=== PATIENT | female | born 1990 | race Caucasian/White ===

== ENCOUNTER → 2016-06-09 | Outpatient (CLI) | payer BC ==
[2016-06-09 16:05] LABS: CH 30.3; CHCM 35.5; HCT 35.1 % (34.0-46.0); HDW 3.06; HGB 12.3 gm/dL (11.4-16.0); MCH 30.2 pg (25.0-35.0); MCHC 35.2 g/dL (31.0-37.0); MCV 85.8 fL (80.0-100.0); RBC 4.09 m/uL (3.80-5.40); RDW 12.8 % (11.5-15.5); WBC 6.9 k/uL (3.8-10.6)
[2016-06-09 16:15] LABS: Glucose 86 mg/dL (74-99); Non-African American GFR(MDRD) >60 (>60 ml/min/1.73 sqM)
--- NOTE | 2016-06-09 16:25 | US ---
EXAMINATION TYPE: US OB <= 14 wk fetus DATE OF EXAM: 06/09/2016 3:50 PM COMPARISON: NONE CLINICAL HISTORY: 26-year-old female [id number] Confirm Dates. EXAM PERFORMED: Transabdominal (TA) scanning. FINDINGS: EXAM MEASUREMENTS: GESTATIONAL AGE / DATING Physician Established: (9 weeks/1 days) EDC: 01/11/2017 Dates by LMP: (9 weeks/1 days) EDC: 01/11/2017 Dates by First Scan: no previous scan Dates by Current Scan for: (8 weeks/4 days +/- 5 days) EDC: MATERNAL ANATOMY Uterus: 15.0 x 6.5 x 5.5cm, retroverted Right Ovary: 3.0 x 1.7 x 2.8cm Left Ovary: 2.4 x 1.5 x 2.5cm Post CDS / Adnexa: wnl Presence of free fluid: none seen GESTATION / SURVEY CRL: 1.9cm (8 weeks/4 days) MSD: wnl Yolk Sac (normal less than 6mm): 3.1 mm Heart Rate: 168 bpm Rhythm: Normal IUP: single viable IUP IMPRESSION: 1. Single live intrauterine with estimated gestational age of 9 weeks 1 day by LMP. Current ultrasound biometry is concordant (8 weeks 4 days). 2. Retroverted uterus. 3. Complete survey recommended at 18-20 weeks.
[2016-06-09 16:45] LABS: Hepatitis B Surface Ag Index 0.08
[2016-06-10 08:08] LABS: HIV-1/HIV-2 Ab Screen NONREAC (NON REAC)
== END | disposition home or self-care (01) ==
LOC: RADUSWWP 15:33
PROVIDERS: ATTEND Obstetrics & Gynecology
DX: O34.531 Maternal care for retroversion of gravid uterus, first trimester (principal); Z34.81 Encounter for supervision of other normal pregnancy, first trimester; Z3A.09 9 weeks gestation of pregnancy
CPT/HCPCS: 36415; 76801; 82565; 82947; 85027; 86762; 86780; 86850; 86900; 86901; 87340; 87389

== ENCOUNTER → 2016-10-14 | Outpatient (CLI) | payer BC ==
[2016-10-14 11:05] LABS: CH 31.2; CHCM 35.8; HCT 34.1 % (34.0-46.0); HDW 3.22; HGB 12.4 gm/dL (11.4-16.0); MCH 31.9 pg (25.0-35.0); MCHC 36.3 g/dL (31.0-37.0); Mean Platelet Volume 7.7; RBC 3.88 m/uL (3.80-5.40); RDW 14.4 % (11.5-15.5); WBC 11.9 k/uL (3.8-10.6)
== END | disposition home or self-care (01) ==
LOC: LABWHC1 09:45
PROVIDERS: ATTEND Obstetrics & Gynecology
DX: Z34.82 Encounter for supervision of other normal pregnancy, second trimester (principal); Z3A.00 Weeks of gestation of pregnancy not specified
CPT/HCPCS: 36415; 82950; 85027

== ENCOUNTER → 2016-10-19 | Outpatient (CLI) | payer BC ==
[2016-10-19 12:48] LABS: Glucose 3 Hour, Gest 90 mg/dL
== END | disposition home or self-care (01) ==
LOC: LABWHC1 08:38
PROVIDERS: ATTEND Obstetrics & Gynecology
DX: O24.419 Gestational diabetes mellitus in pregnancy, unspecified control (principal); Z3A.00 Weeks of gestation of pregnancy not specified
CPT/HCPCS: 36415; 82951; 82952

== ENCOUNTER → 2018-01-31 | Outpatient (CLI) | payer BC ==
--- NOTE | 2018-01-31 11:31 | US ---
EXAMINATION TYPE: US abdomen complete DATE OF EXAM: 01/31/2018 COMPARISON: NONE CLINICAL HISTORY: Abdominal pain R10.9. Right side tenderness. Patient is 14 weeks EXAM MEASUREMENTS: Liver Length: 15.2 cm Gallbladder Wall: 0.2 cm CBD: 0.4 cm Spleen: 11.5 cm Right Kidney: 11.0 x 4.8 x 5.8 cm Left Kidney: 12.0 x 5.7 x 5.6 cm Pancreas: Tail obscured by overlying bowel gas, visualized portions wnl Liver: wnl Gallbladder: wnl Evidence for sonographic Cummings's sign: No CBD: wnl Spleen: wnl Right Kidney: No hydronephrosis or masses seen Left Kidney: No hydronephrosis or masses seen Upper IVC: wnl Abd Aorta: wnl The liver is homogenous. The intrahepatic portion of the IVC and proximal abdominal aorta are within normal limits. There is no evidence of cholelithiasis. Common bile duct is unremarkable. The visu alized portions of the pancreas are homogenous. The spleen is unremarkable. Kidneys are symmetric a nd free of hydronephrosis. No renal lesions are seen. IMPRESSION: No hydronephrosis or nephrolithiasis. No sonographic evidence of acute cholecystitis or c holelithiasis. Unremarkable abdominal ultrasound.
== END | disposition home or self-care (01) ==
LOC: RADUSWWP 10:03
PROVIDERS: ATTEND Internal Medicine
DX: R10.9 Unspecified abdominal pain (principal)
CPT/HCPCS: 76700

== ENCOUNTER → 2018-05-02 | Outpatient (CLI) | payer BC, OTHER ==
[2018-05-02 11:58] LABS: HCT 35.9 % (34.0-46.0); MCHC 33.4 g/dL (31.0-37.0); MCV 89.8 fL (80.0-100.0); Mean Platelet Volume 6.6; Platelet Count 216 k/uL (150-450); RBC 3.99 m/uL (3.80-5.40); RDW 13.4 % (11.5-15.5)
== END | disposition home or self-care (01) ==
LOC: LABWHC1 09:48
PROVIDERS: ATTEND Obstetrics & Gynecology
DX: Z34.82 Encounter for supervision of other normal pregnancy, second trimester (principal)
CPT/HCPCS: 36415; 82950; 85027

== ENCOUNTER 2018-07-19 12:24 | Inpatient (IN) | payer BC ==
[2018-07-19] MEDS ORDERED: OXYTOCIN 10 UNIT/ML 1 ML VIAL IM PRN (12:43)
[2018-07-19] MEDS ORDERED: METHYLERGONOVINE 0.2 MG/ML 1 ML AMP IM PRN (12:43)
[2018-07-19] MEDS ORDERED: LIDOCAINE 0.5% (PF) 5 MG/ML (50 ML SDV) SQ PRN (12:43)
[2018-07-19] MEDS ORDERED: CARBOPROST TROMETHAMINE 250 MCG/ML 1 ML AMP IM PRN (12:43)
[2018-07-19] MEDS ORDERED: TERBUTALINE 1 MG/ML VIAL SQ PRN (12:43)
[2018-07-19] MEDS ORDERED: OXYTOCIN 30 UNITS/500 ML NS 30 UNIT in SALINE 1 500ML.BAG IV SCH (12:45)
[2018-07-19] MEDS: LACTATED RINGERS 1,000 ML IV SCH ×2 (13:00→13:45)
[2018-07-19 13:08] LABS: Basophils # (A) 0.1 k/uL (0-0.2); Basophils % (A) 0 %; Eosinophils # (A) 0.1 k/uL (0-0.7); Eosinophils % (A) 1 %; HCT 37.7 % (34.0-46.0); HGB 12.7 gm/dL (11.4-16.0); Lymphocytes # (A) 1.4 k/uL (1.0-4.8); Lymphocytes % (A) 11 %; MCH 28.8 pg (25.0-35.0); MCHC 33.6 g/dL (31.0-37.0); MCV 85.9 fL (80.0-100.0); Mean Platelet Volume 9.7; Monocytes # (A) 0.5 k/uL (0-1.0); Monocytes % (A) 4 %; Neutrophils # (A) 10.7 k/uL (1.3-7.7); Neutrophils % (A) 83 %; Platelet Count 205 k/uL (150-450); Poikilocytosis Slight; RBC 4.39 m/uL (3.80-5.40); RDW 14.5 % (11.5-15.5); WBC 12.8 k/uL (3.8-10.6)
[2018-07-19] MEDS ORDERED: fentaNYL (PF) 50 MCG/ML 5 ML AMP ONE (13:11)
[2018-07-19] MEDS ORDERED: SODIUM CHLORIDE 0.9% 100 ML BAG ONE (13:11)
[2018-07-19] MEDS ORDERED: ROPIVACAINE 5MG/ML 20ML VIAL ONE (13:11)
[2018-07-19 13:41] VITALS: BMI 24.4
[2018-07-19] MEDS ORDERED: SIMETHICONE 80 MG CHEWABLE PO PRN (14:49)
[2018-07-19] MEDS ORDERED: ZOLPIDEM 5 MG TAB PO PRN (14:49)
[2018-07-19] MEDS ORDERED: diphenhydrAMINE 50 MG CAP PO PRN (14:49)
[2018-07-19] MEDS ORDERED: HYDROCORTISONE 2.5% RECTAL CREAM 30 GM TUBE RECTAL PRN (14:49)
[2018-07-19] MEDS ORDERED: BENZOCAINE/MENTHOL SPRAY 1 GM/SPRAY AEROSOL TOPICAL PRN (14:49)
[2018-07-19] MEDS ORDERED: LANOLIN CREAM 5 GM TUBE TOPICAL PRN (14:49)
[2018-07-19] MEDS ORDERED: WITCH HAZEL 1 EACH MED..PAD TOPICAL PRN (14:49)
[2018-07-19] MEDS ORDERED: diphenhydrAMINE 25 MG CAP PO PRN (14:49)
[2018-07-19] MEDS ORDERED: OXYTOCIN 20 UNITS/1000 ML NS 1,000 ML IV SCH (15:00)
--- NOTE | 2018-07-19 16:57 | P.HPOB ---
History of Present Illness H&P Date: 07/19/18 Chief Complaint: Intrauterine at term: Active labor Carlie is a 28-year-old female at 38 weeks gestation who arrives in active labor dilated to 6 cm epidural was placed for analgesia. She denies any problems or issues with this and she has a category 1 tracing noted at this time. Past Medical History Past Medical History: No Reported History History of Any Multi-Drug Resistant Organisms: None Reported Additional Past Surgical History / Comment(s): Leep, [place] Tooth Extraction Past Anesthesia/Blood Transfusion Reactions: No Reported Reaction Past Psychological History: No Psychological Hx Reported Smoking Status: Never smoker Past Alcohol Use History: None Reported Past Drug Use History: None Reported - Past Family History Mother Family Medical History: No Reported History Medications and Allergies Home Medications Medication Instructions Recorded Confirmed Type No Known Home Medications 07/19/18 07/19/18 History Allergies Allergy/AdvReac Type Severity Reaction Status Date / Time No Known Allergies Allergy Verified 01/11/17 04:12 Exam Osteopathic Statement: *. No significant issues noted on an osteopathic structural exam other than those noted in the History and Physical/Consult. Vital Signs Temp Pulse Resp BP Pulse Ox 07/19/18 15:50 97.1 F L 98 18 109/57 07/19/18 15:20 97.3 F L 87 16 112/63 07/19/18 15:05 96.9 F L 93 16 121/70 07/19/18 14:50 97.4 F L 88 18 127/60 07/19/18 14:35 97.5 F L 90 18 126/55 07/19/18 12:58 97.7 F 96 18 128/75 98 07/19/18 12:33 97.7 F 93 18 128/75 98 Intake and Output 07/19/18 07/19/18 07/19/18 06:59 14:59 22:59 Output Total 75 Balance -75 Output: Urine 75 Other: # Voids 0 Weight 66.587 kg - OBG Physical Exam Breast: both: normal (no masses) Abdomen: bowel sounds normal, no diffuse tenderness, no bruit present, no guarding noted, no hepatomegaly, no splenomegaly, no mass Vulva: both: normal Vagina: normal moisture, no discharge Cervix: no lesion, no discharge Uterus: normal size, normal contour Adnexa: both: normal Anus/Rectum: normal perianal skin, no rectal mass, no hemorrhoids, heme negative Results Result Diagrams: 07/19/18 12:55 Abnormal Lab Results - Last 24 Hours (Table) 07/19/18 Range/Units 12:55 WBC 12.8 H (3.8-10.6) k/uL Neutrophils # 10.7 H (1.3-7.7) k/uL
--- NOTE | 2018-07-19 16:58 | P.PROBDLV ---
Vaginal Delivery Note - . Vaginal Delivery Note: Patient progressed complete and pushing with spontaneous vaginal delivery of a viable female over an intact perineum. Following delivery of the head anterior posterior shoulders were easily delivered with gentle downward upper traction followed by the remainder the baby. Mouth nares were then bulb suctioned and baby was placed mother's abdomen where the umbilical cord was allowed to pulsate for 30 seconds prior to clamping and cutting. Once this was accomplished nursery personnel was present and assumed care. True knot was noted in the cord during delivery of the placenta, however placenta delivered without difficulty and was sent to pathology due to true knot. scores 9 and 9 at one and 5 minutes respectively and the weight was 7 lbs. 3 oz. Both mother and baby are stable following delivery.
[2018-07-19] MEDS: IBUPROFEN 600 MG TAB PO PRN (20:43)
[2018-07-19] MEDS: ACETAMINOPHEN TAB 325 MG TAB PO PRN (23:26)
[2018-07-19] MEDS: SENNOSIDES-DOCUSATE SODIUM 1 EACH TAB PO SCH (23:26)
[2018-07-20] MEDS: IBUPROFEN 600 MG TAB PO PRN ×2 (02:06→09:57)
[2018-07-20] MEDS: ACETAMINOPHEN TAB 325 MG TAB PO PRN ×2 (06:12→14:29)
--- NOTE | 2018-07-20 06:32 | P.PNOBGVD ---
Subjective - Subjective Patient reports: Reports appetite normal, Reports voiding normally, Reports pain well controlled, Reports ambulating normally : doing well Objective - Latest Vital Signs Latest vital signs: Vital Signs Temp Pulse Resp BP Pulse Ox 07/19/18 23:13 98.2 F 72 18 127/76 99 07/19/18 20:00 98.1 F 88 16 124/70 98 07/19/18 16:20 97.8 F 86 18 116/61 07/19/18 15:50 97.1 F L 98 18 109/57 07/19/18 15:20 97.3 F L 87 16 112/63 07/19/18 15:05 96.9 F L 93 16 121/70 07/19/18 14:50 97.4 F L 88 18 127/60 07/19/18 14:35 97.5 F L 90 18 126/55 07/19/18 12:58 97.7 F 96 18 128/75 98 07/19/18 12:33 97.7 F 93 18 128/75 98 Intake and Output 07/19/18 07/19/18 07/20/18 14:59 22:59 06:59 Intake Total 200 Output Total 75 Balance -75 200 Intake: Oral 200 Output: Urine 75 Other: # Voids 1 2 Weight 66.587 kg - Exam Lungs: bilateral: normal Chest: Normal S1, Normal S2 Extremities: Present: normal Abdomen: Present: normal appearance, soft Uterus: Present: normal, firm - Labs Labs: Abnormal Lab Results - Last 24 Hours (Table) 07/19/18 Range/Units 12:55 WBC 12.8 H (3.8-10.6) k/uL Neutrophils # 10.7 H (1.3-7.7) k/uL Assessment and Plan Assessment: day #1. Patient is resting without complaints wishes to go home. Vital signs are stable she's afebrile. Uterus is firm nontender and she is having normal lochia. My impression is this is a normal course. Plan is to continue routine care discharge home later today. (1) Normal labor and delivery Current Visit: No Status: Acute Code(s): O80 - ENCOUNTER FOR FULL-TERM UNCOMPLICATED DELIVERY SNOMED Code(s): 94777270
--- NOTE | 2018-07-20 06:36 | P.DS ---
Providers Date of admission: 07/19/18 12:43 Expected date of discharge: 07/20/18 Attending physician: Pratik Rose Primary care physician: Stated None - Discharge Diagnosis(es) (1) Normal labor and delivery Current Visit: No Status: Acute Hospital Course: Please see dictated H&P for intimate details of this patient's admission. Brief summary this is a pleasant 28-year-old 5 para 3 female 38-4/7 weeks gestation is admitted to labor and delivery in active labor. Patient quickly goes on have a vaginal delivery viable female infant. Please see dictated delivery note. day 1 patient wishes to go home was felt be stable for discharge home follow up with me in 6 weeks. Procedures: Normal spontaneous vaginal delivery Patient Condition at Discharge: Good Plan - Discharge Summary New Discharge Prescriptions: New Ibuprofen [Motrin] 600 mg PO Q6HR PRN #40 tab PRN Reason: Mild Pain Or Fever >= 100.5 Discharge Medication List Ibuprofen [Motrin] 600 mg PO Q6HR PRN #40 tab 07/20/18 [Rx] Follow up Appointment(s)/Referral(s): Pratik Rose MD [STAFF PHYSICIAN] - 6 Weeks Patient Instructions/Handouts: Vaginal Delivery (DC) Activity/Diet/Wound Care/Special Instructions: No intercourse or anything per vagina for 6 weeks. Please call if any fever, chills, excessive vaginal bleeding, and/or abdominal pain. Discharge Disposition: HOME SELF-CARE
[2018-07-20] MEDS: SENNOSIDES-DOCUSATE SODIUM 1 EACH TAB PO SCH (08:02)
[2018-07-20 08:03] LABS: Basophils % (A) 0 %; Eosinophils # (A) 0.1 k/uL (0-0.7); Eosinophils % (A) 1 %; HCT 32.3 % (34.0-46.0); HGB 10.9 gm/dL (11.4-16.0); Hypochromasia Slight; Lymphocytes # (A) 1.6 k/uL (1.0-4.8); Lymphocytes % (A) 17 %; MCH 29.5 pg (25.0-35.0); MCHC 33.8 g/dL (31.0-37.0); MCV 87.3 fL (80.0-100.0); Mean Platelet Volume 9.8; Monocytes # (A) 0.4 k/uL (0-1.0); Monocytes % (A) 5 %; Neutrophils # (A) 7.1 k/uL (1.3-7.7); Neutrophils % (A) 75 %; Platelet Count 167 k/uL (150-450); Poikilocytosis Slight; RBC 3.69 m/uL (3.80-5.40); RDW 14.5 % (11.5-15.5); WBC 9.4 k/uL (3.8-10.6)
[2018-07-20 12:01] VITALS: BP 115/71; PULSE 74; RESP 15; TEMP 97.8
== END 2018-07-20 15:35 | disposition home or self-care (01) | DRG 807 ==
LOC: FBPOP 12:24 → 4FBP 12:43
PROVIDERS: ADMIT Obstetrics & Gynecology; ATTEND Obstetrics & Gynecology
PROC: 10E0XZZ Delivery of Products of Conception, External Approach (ICD-10-PCS; principal; 2018-07-19)
PROC: 00HU33Z Insertion of Infusion Device into Spinal Canal, Percutaneous Approach (ICD-10-PCS; 2018-07-19)
PROC: 3E0R3BZ Introduction of Anesthetic Agent into Spinal Canal, Percutaneous Approach (ICD-10-PCS; 2018-07-19)
DX: O69.2XX0 Labor and delivery complicated by other cord entanglement, with compression, not applicable or unspecified (principal); Z37.0 Single live birth; Z3A.38 38 weeks gestation of pregnancy
CPT/HCPCS: 59025; 85025; 86850; 86900; 86901; 88307; 99213

== ENCOUNTER 2020-11-09 10:51 | Emergency (ER) | payer BC ==
[2020-11-09 11:01] VITALS: TEMP 97.9
[2020-11-09] MEDS ORDERED: LORazepam 1 MG TAB PO STA (11:22)
--- NOTE | 2020-11-09 11:39 | XR ---
EXAMINATION TYPE: XR soft tissue neck DATE OF EXAM: 11/09/2020 COMPARISON: NONE HISTORY: Sore throat TECHNIQUE: 2 view submitted FINDINGS: Osseous structures intact. Prevertebral soft tissues within normal limits. Epiglottis withi n normal limits. The lung apices clear. Airway patent. IMPRESSION: No abnormality noted.
--- NOTE | 2020-11-09 12:09 | ED ---
Nausea/Vomiting/Diarrhea HPI - General Chief complaint: Nausea/Vomiting/Diarrhea Stated complaint: Difficulty Swallowing Time Seen by Provider: 11/09/20 10:53 Source: patient, EMS Mode of arrival: EMS Limitations: no limitations - History of Present Illness Initial comments: 30-year-old female presents emergency Department with the with a chief a little panic attack. Patient brought to the ED via EMS. On physical examination, patient is quite anxious and crying. Patient states she has been experiencing some changes in her voice. States that her voice has been feeling more hoarse than usual over the last several months. States she has been reading online and was concern for possible neoplastic disease of her throat. States she did not follow up with her primary care at all. States she began to drive to the hospital for an evaluation and suffered a panic attack. Patient reports this is a first panic attack so she contacted EMS. Patient reports she feels slightly better now but is still very anxious. she is not taking any medications for her anxiety. - Related Data Previous Rx's Medication Instructions Recorded LORazepam [Ativan] 1 mg PO HS 3 Days #3 tab 11/09/20 Allergies Allergy/AdvReac Type Severity Reaction Status Date / Time No Known Allergies Allergy Verified 11/09/20 11:18 Review of Systems ROS Statement: Those systems with pertinent positive or pertinent negative responses have been documented in the HPI. ROS Other: All systems not noted in ROS Statement are negative. Past Medical History Past Medical History: No Reported History History of Any Multi-Drug Resistant Organisms: None Reported Additional Past Surgical History / Comment(s): Leep, [place] Tooth Extraction Past Anesthesia/Blood Transfusion Reactions: No Reported Reaction Past Psychological History: No Psychological Hx Reported Smoking Status: Never smoker Past Alcohol Use History: Rare Past Drug Use History: None Reported - Past Family History Mother Family Medical History: No Reported History General Exam Limitations: no limitations General appearance: alert, in no apparent distress, anxious Head exam: Present: atraumatic, normocephalic, normal inspection Eye exam: Present: normal appearance, PERRL, EOMI Pupils: Present: normal accommodation ENT exam: Present: normal exam, normal oropharynx, mucous membranes moist Neck exam: Present: normal inspection, full ROM. Absent: tenderness, lymphadenopathy Respiratory exam: Present: normal lung sounds bilaterally. Absent: respiratory distress Cardiovascular Exam: Present: regular rate, normal rhythm, normal heart sounds. Absent: systolic murmur Extremities exam: Present: normal inspection, full ROM, normal capillary refill. Absent: tenderness Back exam: Present: normal inspection, full ROM. Absent: tenderness, CVA tenderness (R), CVA tenderness (L) Neurological exam: Present: alert, oriented X3, normal gait Psychiatric exam: Present: normal affect, anxious Skin exam: Present: warm, dry, intact, normal color Course Vital Signs 11/09/20 10:55 Temperature 97.9 F Pulse Rate 101 H Respiratory 22 Rate Blood Pressure 113/83 O2 Sat by Pulse 100 Oximetry Medical Decision Making - Medical Decision Making 30-year-old male presents to the emergency department with a chief complaint of a panic attack. Physical examination, patient is quite anxious. She was given 1 mg of Ativan. X-ray of the soft tissues of the neck is unremarkable. ENT examination was unremarkable. No palpable abnormalities of the thyroid. With 3 tablets of Ativan. I advise a follow-up with her primary care physician. Strict return parameters were thoroughly discussed patient is an attending ago. Case discussed physician. Disposition Clinical Impression: Panic attack Disposition: ADMITTED IP TO THIS [facility] Condition: Fair Instructions (If sedation given, give patient instructions): Panic Attack (ED), Anxiety (ED) Additional Instructions: Please return to the Emergency Department if symptoms worsen or any other concerns. Do not drive or operate heavy machinery when taking medication. Prescriptions: LORazepam [Ativan] 1 mg PO HS 3 Days #3 tab Is patient prescribed a controlled substance at d/c from ED?: Yes If prescribed controlled substance>3 days was MAPS reviewed?: Prescribed <3 Days Referrals: Allison Rossi MD [Primary Care Provider] - 1-2 days Time of Disposition: 12:09
[2020-11-09 12:39] VITALS: RESP 18
[2020-11-09 12:40] VITALS: BP 100/74; PULSE 85
== END 2020-11-09 12:29 | disposition other institution (70) ==
LOC: EC 10:51
DX: F41.0 Panic disorder [episodic paroxysmal anxiety] (principal)
CPT/HCPCS: 70360; 99285

== ENCOUNTER 2023-05-03 12:09 | Emergency (ER) | payer BC ==
--- NOTE | 2023-05-03 12:27 | ED ---
General Adult HPI - General Chief complaint: Abdominal Pain Stated complaint: abd pain Time Seen by Provider: 05/03/23 12:15 Source: patient, RN notes reviewed Mode of arrival: ambulatory Limitations: no limitations - History of Present Illness Initial comments: 33-year-old female presents to the emergency department for evaluation of epigastric abdominal pain x 10 hours. Patient reports that the pain is intermittent. She states that when it comes on it feels like a shooting, stabbing pain in her abdomen. She states that the pain was lasting for 20 to 30 minutes at a time but now is only lasting for around 10 minutes at a time. She denies any known triggers. She denies fever, chills, nausea, vomiting. She states that she had the urge to have a bowel movement this morning but was unable to. She denies any prior abdominal surgeries. Denies significant past medical history. She denies any other associated symptoms. - Related Data Previous Rx's Medication Instructions Recorded LORazepam [Ativan] 1 mg PO HS 3 Days #3 tab 11/09/20 Allergies Allergy/AdvReac Type Severity Reaction Status Date / Time No Known Allergies Allergy Verified 05/03/23 12:10 Review of Systems ROS Statement: Those systems with pertinent positive or pertinent negative responses have been documented in the HPI. ROS Other: All systems not noted in ROS Statement are negative. Past Medical History Past Medical History: No Reported History History of Any Multi-Drug Resistant Organisms: None Reported Additional Past Surgical History / Comment(s): Leep, Wilbur Tooth Extraction Past Anesthesia/Blood Transfusion Reactions: No Reported Reaction Past Psychological History: No Psychological Hx Reported Smoking Status: Never smoker Past Alcohol Use History: Rare Past Drug Use History: None Reported - Past Family History Mother Family Medical History: No Reported History General Exam Limitations: no limitations General appearance: alert, in no apparent distress Head exam: Present: atraumatic, normocephalic, normal inspection Eye exam: Present: normal appearance, PERRL, EOMI. Absent: scleral icterus, conjunctival injection, periorbital swelling ENT exam: Present: normal exam, mucous membranes moist Neck exam: Present: normal inspection. Absent: tenderness, meningismus, lymphadenopathy Respiratory exam: Present: normal lung sounds bilaterally. Absent: respiratory distress, wheezes, rales, rhonchi, stridor Cardiovascular Exam: Present: regular rate, normal rhythm, normal heart sounds. Absent: systolic murmur, diastolic murmur, rubs, gallop, clicks GI/Abdominal exam: Present: soft, tenderness, normal bowel sounds. Absent: distended, guarding, rebound, rigid Extremities exam: Present: normal inspection, full ROM, normal capillary refill. Absent: tenderness, pedal edema, joint swelling, calf tenderness Back exam: Present: normal inspection Neurological exam: Present: alert, oriented X3 Psychiatric exam: Present: normal affect, normal mood Skin exam: Present: warm, dry, intact, normal color. Absent: rash Course Vital Signs 05/03/23 05/03/23 12:10 14:24 Temperature 98.2 F Pulse Rate 113 H 94 Respiratory 18 18 Rate Blood Pressure 114/66 O2 Sat by Pulse 99 Oximetry Medical Decision Making - Medical Decision Making Was pt. sent in by a medical professional or institution (, PA, SHEET METAL LAYOUT WORKER, urgent care, hospital, or longterm...) When possible be specific @ -No Did you speak to anyone other than the patient for history (EMS, parent, family, police, friend...)? What history was obtained from this source @ -No Did you review nursing and triage notes (agree or disagree)? Why? @ -I reviewed and agree with nursing and triage notes Were old charts reviewed (outside hosp., previous admission, EMS record, old EKG, old radiological studies, urgent care reports/EKG's, longterm records)? Report findings @ -No old charts were reviewed Differential Diagnosis (chest pain, altered mental status, abdominal pain women, abdominal pain men, vaginal bleeding, weakness, fever, dyspnea, syncope, headache, dizziness, GI bleed, back pain, seizure, CVA, palpatations, mental health, musculoskeletal)? @ -Differential Abdominal Pain Women: Appendicitis, Cholecystitis, diverticulosis, ischemic bowel, pancreatitis, hepatitis, UTI, gastroenteritis, AAA, incarcerated hernia, bowel obstruction, constipation, inflammatory bowel, hepatitis, peptic ulcer disease, splenic infarction, perforated viscus, vulvitis, ovarian torsion, PID, kidney stone, placenta abruption, this is not meant to be an all-inclusive list EKG interpreted by me (3pts min.). @ -None X-rays interpreted by me (1pt min.). @ -None done CT interpreted by me (1pt min.). @ -CT abdomen pelvis shows Small bowel enteritis with multiple thickened small bowel loops leading into the pelvis, appendix not definitively visualized U/S interpreted by me (1pt. min.). @ -None done What testing was considered but not performed or refused? (CT, X-rays, U/S, labs)? Why? @ -None What meds were considered but not given or refused? Why? @ -Pain medication considered. Patient declined at this time. Did you discuss the management of the patient with other professionals (professionals i.e. , PA, SHEET METAL LAYOUT WORKER, lab, RT, psych nurse, transition social worker, cash applications coordinator, teacher, customer service security officer, watch case polisher)? Give summary @ -No Was smoking cessation discussed for >3mins.? @ -No Was critical care preformed (if so, how long)? @ -No Were there social determinants of health that impacted care today? How? (Homelessness, low income, unemployed, alcoholism, drug addiction, transport ation, low edu. Level, literacy, decrease access to med. care, nursing home, rehab)? @ -No Was there de-escalation of care discussed even if they declined (Discuss DNR or withdrawal of care, Hospice)? DNR status @ -No What co-morbidities impacted this encounter? (DM, HTN, Smoking, COPD, CAD, Cancer, CVA, ARF, Chemo, Hep., AIDS, mental health diagnosis, sleep apnea, morbid obesity)? @ -None Was patient admitted / discharged? Hospital course, mention meds given and route, prescriptions, significant lab abnormalities, going to OR and other pertinent info. @ -Discharge. Patient presented to the emergency department for evaluation of abdominal pain. Laboratory studies obtained.CBC shows WBC 12.1, hemoglobin 14.4, hematocrit 41.7; CMP essentially unremarkable; UA shows 1+ ketones, small blood, 1 RBC, 1 WBC; negative urine hCG; CT abdomen pelvis obtained shows small bowel enteritis with multiple thickened bowel loops leading in to the pelvis with a simple appearing free fluid, appendix not definitively visualized. Patient is not having any lower abdominal pain at this time. Discussed findings with patient and advised symptomatic treatment at this time. Patient understanding agreeable plan. Patient stable at time of discharge. Case discussed with Dr. Stephenson Undiagnosed new problem with uncertain prognosis? @ -No Drug Therapy requiring intensive monitoring for toxicity (Heparin, Nitro, Insulin, Cardizem)? @ -No Were any procedures done? @ -No Diagnosis/symptom? @ -Enteritis Acute, or Chronic, or Acute on Chronic? @ -Acute Uncomplicated (without systemic symptoms) or Complicated (systemic symptoms)? @ -Uncomplicated Side effects of treatment? @ -No Exacerbation, Progression, or Severe Exacerbation? @ -No Poses a threat to life or bodily function? How? (Chest pain, [place], [place], pneumonia, PE, COPD, DKA, ARF, appy, cholecystitis, CVA, Diverticulitis, Homicidal, Suicidal, threat to staff... and all critical care pts) @ -No - Lab Data Result diagrams: 05/03/23 12:37 05/03/23 12:37 Lab Results 05/03/23 05/03/23 05/03/23 Range/Units 12:37 12:37 12:37 WBC 12.1 H (3.8-10.6) k/uL RBC 4.78 (3.80-5.40) m/uL Hgb 14.4 (11.4-16.0) gm/dL Hct 41.7 (34.0-46.0) % MCV 87.2 (80.0-100.0) fL MCH 30.1 (25.0-35.0) pg MCHC 34.5 (31.0-37.0) g/dL RDW 12.3 (11.5-15.5) % Plt Count 248 (150-450) k/uL MPV 7.5 Neutrophils % 87 % Lymphocytes % 9 % Monocytes % 3 % Eosinophils % 0 % Basophils % 0 % Neutrophils # 10.5 H (1.3-7.7) k/uL Lymphocytes # 1.1 (1.0-4.8) k/uL Monocytes # 0.3 (0-1.0) k/uL Eosinophils # 0.0 (0-0.7) k/uL Basophils # 0.0 (0-0.2) k/uL Sodium (137-145) mmol/L Potassium (3.5-5.1) mmol/L Chloride (98-107) mmol/L Carbon Dioxide (22-30) mmol/L Anion Gap mmol/L BUN (7-17) mg/dL Creatinine (0.52-1.04) mg/dL Est GFR (CKD-EPI)AfAm (>60 ml/min/1.73 sqM) Est GFR (CKD-EPI)NonAf (>60 ml/min/1.73 sqM) Glucose (74-99) mg/dL Plasma Lactic Acid Isr[place] (0.7-2.0) mmol/L Calcium (8.4-10.2) mg/dL Total Bilirubin (0.2-1.3) mg/dL AST (14-36) U/L ALT (4-34) U/L Alkaline Phosphatase (38-126) U/L Total Protein (6.3-8.2) g/dL Albumin (3.5-5.0) g/dL Amylase (30-110) U/L Lipase (23-300) U/L Urine Color Yellow Urine Appearance Clear (Clear) Urine pH 5.0 (5.0-8.0) Ur Specific Boron 1.026 (1.001-1.035) Urine Protein Negative (Negative) Urine Glucose (UA) Negative (Negative) Urine Ketones 1+ H (Negative) Urine Blood Small H (Negative) Urine Nitrite Negative (Negative) Urine Bilirubin Negative (Negative) Urine Urobilinogen <2.0 (<2.0) mg/dL Ur Leukocyte Esterase Negative (Negative) Urine RBC 1 (0-5) /hpf Urine WBC 1 (0-5) /hpf Ur Squamous Epith Cells 5 H (0-4) /hpf Urine Mucus Many H (None) /hpf Urine HCG, Qual Not Detected (Not Detectd) 05/03/23 05/03/23 Range/Units 12:37 12:37 WBC (3.8-10.6) k/uL RBC (3.80-5.40) m/uL Hgb (11.4-16.0) gm/dL Hct (34.0-46.0) % MCV (80.0-100.0) fL MCH (25.0-35.0) pg MCHC (31.0-37.0) g/dL RDW (11.5-15.5) % Plt Count (150-450) k/uL MPV Neutrophils % % Lymphocytes % % Monocytes % % Eosinophils % % Basophils % % Neutrophils # (1.3-7.7) k/uL Lymphocytes # (1.0-4.8) k/uL Monocytes # (0-1.0) k/uL Eosinophils # (0-0.7) k/uL Basophils # (0-0.2) k/uL Sodium 139 (137-145) mmol/L Potassium 4.0 (3.5-5.1) mmol/L Chloride 105 (98-107) mmol/L Carbon Dioxide 26 (22-30) mmol/L Anion Gap 8 mmol/L BUN 16 (7-17) mg/dL Creatinine 0.47 L (0.52-1.04) mg/dL Est GFR (CKD-EPI)AfAm >90 (>60 ml/min/1.73 sqM) Est GFR (CKD-EPI)NonAf >90 (>60 ml/min/1.73 sqM) Glucose 98 (74-99) mg/dL Plasma Lactic Acid Isrrael 1.0 (0.7-2.0) mmol/L Calcium 9.8 (8.4-10.2) mg/dL Total Bilirubin 0.7 (0.2-1.3) mg/dL AST 26 (14-36) U/L ALT 30 (4-34) U/L Alkaline Phosphatase 82 (38-126) U/L Total Protein 8.1 (6.3-8.2) g/dL Albumin 4.7 (3.5-5.0) g/dL Amylase 50 (30-110) U/L Lipase 50 (23-300) U/L Urine Color Urine Appearance (Clear) Urine pH (5.0-8.0) Ur Specific Boron (1.001-1.035) Urine Protein (Negative) Urine Glucose (UA) (Negative) Urine Ketones (Negative) Urine Blood (Negative) Urine Nitrite (Negative) Urine Bilirubin (Negative) Urine Urobilinogen (<2.0) mg/dL Ur Leukocyte Esterase (Negative) Urine RBC (0-5) /hpf Urine WBC (0-5) /hpf Ur Squamous Epith Cells (0-4) /hpf Urine Mucus (None) /hpf Urine HCG, Qual (Not Detectd) Disposition Clinical Impression: Enteritis Disposition: HOME SELF-CARE Condition: Stable Instructions (If sedation given, give patient instructions): Abdominal Pain (ED) Additional Instructions: Alternate Tylenol and Motrin for discomfort. Please follow up with your primary care provider. Return to the emergency department for new or worsening symptoms. Is patient prescribed a controlled substance at d/c from ED?: No Referrals: Allison Rossi MD [Primary Care Provider] - 1-2 days
[2023-05-03 12:31] VITALS: BP 114/66; RESP 18; TEMP 98.2
[2023-05-03 12:57] LABS: Basophils % (A) 0 %; Eosinophils % (A) 0 %; HCT 41.7 % (34.0-46.0); HGB 14.4 gm/dL (11.4-16.0); Lymphocytes # (A) 1.1 k/uL (1.0-4.8); Lymphocytes % (A) 9 %; MCH 30.1 pg (25.0-35.0); MCHC 34.5 g/dL (31.0-37.0); MCV 87.2 fL (80.0-100.0); Mean Platelet Volume 7.5; Monocytes # (A) 0.3 k/uL (0-1.0); Monocytes % (A) 3 %; Neutrophils # (A) 10.5 k/uL (1.3-7.7); Neutrophils % (A) 87 %; Platelet Count 248 k/uL (150-450); RBC 4.78 m/uL (3.80-5.40); RDW 12.3 % (11.5-15.5); WBC 12.1 k/uL (3.8-10.6)
[2023-05-03 13:05] LABS: Appearance,Urine Clear (Clear); Bilirubin,Urine Negative (Negative); Blood,Urine Small (Negative); Color,Urine Yellow; Glucose,Urine (UA) Negative (Negative); Ketones,Urine 1+ (Negative); Leukocyte Esterase,Urine Negative (Negative); Mucus,Urine Many /hpf; Nitrite,Urine Negative (Negative); Protein,Urine Negative (Negative); RBC,Urine 1 /hpf (0-5); Specific Gravity,Urine 1.026 (1.001-1.035); Squamous Epithelial Cell,Urine 5 /hpf (0-4); Urobilinogen,Urine <2.0 mg/dL (<2.0); WBC,Urine 1 /hpf (0-5)
[2023-05-03 13:07] LABS: ALT 30 U/L (4-34); AST 26 U/L (14-36); African American GFR (CKD) >90 (>60 ml/min/1.73 sqM); Albumin 4.7 g/dL (3.5-5.0); Alkaline Phosphatase 82 U/L (38-126); Amylase 50 U/L (30-110); Anion Gap 8 mmol/L; Blood Urea Nitrogen 16 mg/dL (7-17); Calcium 9.8 mg/dL (8.4-10.2); Carbon Dioxide 26 mmol/L (22-30); Chloride 105 mmol/L (98-107); Glucose 98 mg/dL (74-99); Lipase 50 U/L (23-300); Non-African American GFR(CKD) >90 (>60 ml/min/1.73 sqM); Sodium 139 mmol/L (137-145); Total Bilirubin 0.7 mg/dL (0.2-1.3); Total Protein 8.1 g/dL (6.3-8.2)
--- NOTE | 2023-05-03 13:55 | CT ---
EXAMINATION TYPE: CT abdomen pelvis w con CT DLP: 505.9 mGycm, Automated exposure control for dose reduction was used. DATE OF EXAM: 05/03/2023 1:39 PM COMPARISON: Ultrasound 01/31/2018 CLINICAL INDICATION:Female, 33 years old with history of abdominal pain; Abdominal pain TECHNIQUE: Axial CT abdomen pelvis w con;Sagittal and coronal reformats were created on a separate w orkstation. Contrast used:100 ml mL of Isovue 300 with IV Contrast, (none if empty) Oral contrast used: without Oral Contrast (none if empty) FINDINGS: LOWER CHEST: Unremarkable ABDOMEN LIVER: Unremarkable GALLBLADDER AND BILE DUCTS: Unremarkable. PANCREAS: Unremarkable. SPLEEN: Unremarkable. ADRENAL GLANDS: Unremarkable. KIDNEYS AND URETERS: No evidence of hydronephrosis or renal calculus. The ureters are unremarkable. PELVIS BLADDER: Unremarkable REPRODUCTIVE: Retroverted uterus. ABDOMEN & PELVIS STOMACH AND BOWEL: Short segment of small bowel wall thickening in the pelvis measuring up to 5 mm. T here is engorgement of the vasa recta within this segment. No evidence of bowel obstruction. Appendix is not definitively visualized. PERITONEUM/RETROPERITONEUM: No evidence of pneumoperitoneum. Trace free fluid in the pelvis. VASCULATURE: No evidence of aortic aneurysm. MUSCULOSKELETAL: No acute osseous abnormalities LYMPH NODES: No gross evidence for lymphadenopathy. SOFT TISSUE/ABDOMINAL WALL: Unremarkable IMPRESSION: 1. Findings suggestive of small bowel enteritis with multiple thickened small bowel loops leading in the pelvis. There is associated simple appearing free fluid in the pelvis. 2. The appendix is not definitively visualized. No obstructive uropathy. 3. Watery contents within the colon correlate for diarrhea.
[2023-05-03 14:37] VITALS: PULSE 94
== END 2023-05-03 14:25 | disposition home or self-care (01) ==
LOC: EC 12:09
DX: K52.9 Noninfective gastroenteritis and colitis, unspecified (principal)
CPT/HCPCS: 36415; 80053; 82150; 83605; 83690; 85025; 81001; 81025; 74177; 99284; Q9967